=== PATIENT | female | born 1965 | race Caucasian/White ===

== ENCOUNTER 2019-05-13 10:37 | Emergency (ER) | payer MEDICAID, OTHER ==
[~2019-05-13] VITALS: Ht 160 cm; Wt 62.8 kg
[2019-05-13 11:59] VITALS: BP 137/86
== END 2019-05-13 13:01 | disposition home or self-care (01) ==
LOC: ED 12:57
DX: K52.9 Noninfective gastroenteritis and colitis, unspecified (principal)
CPT/HCPCS: 36415; 80053; 81001; 83605; 83690; 85025; 87086; 87147; 93005; 96361; 96374; 96375; 99284; J2270; J2405; J7030

== ENCOUNTER 2019-06-06 08:35 | Emergency (ER) | payer MEDICAID, OTHER ==
[~2019-06-06] VITALS: Ht 157.5 cm; Wt 61.8 kg
[2019-06-06 10:33] VITALS: BP 172/103
== END 2019-06-06 13:26 | disposition home or self-care (01) ==
LOC: ED 09:18
DX: N39.0 Urinary tract infection, site not specified (principal); I10 Essential (primary) hypertension; R19.7 Diarrhea, unspecified; R11.2 Nausea with vomiting, unspecified; Z87.891 Personal history of nicotine dependence; Z87.19 Personal history of other diseases of the digestive system
CPT/HCPCS: 36415; 74021; 74176; 80053; 81001; 83690; 85025; 87086; 99284; Q0162

== ENCOUNTER 2019-08-25 07:16 | Emergency (ER) | payer MEDICAID ==
[~2019-08-25] VITALS: Ht 157.5 cm; Wt 62.0 kg
[~2019-08-25 07:16] MED LIST: AMLO-150 PO; OMEP-110 PO
--- NOTE | 2019-08-25 07:41 | NUR ---
PATIENT PRESENTS TO ED TODAY FOR LOWER BACK PAIN X 2 MONTHS, PATIENT REPORTS SLIPPING ON A TOY ON THE STAIRS AND INJURED BACK 2 MONTHS AGO. PAIN NOT SUBSIDING. AWAITING MD ORDERS, CALL LIGHT WITHIN REACH.
[2019-08-25] MEDS ORDERED: AMLO10TA8 PO (07:45)
[2019-08-25] MEDS ORDERED: LOSA25TA25 PO (07:45)
[2019-08-25] MEDS ORDERED: KETOROLAC 30 MG/1 ML IVPush ONE (08:30)
[2019-08-25] MEDS ORDERED: CARISOPRODOL 350 MG TABLET PO ONE (08:30)
[2019-08-25] MEDS ORDERED: KETOROLAC 30 MG/1 ML ONE (08:36)
[2019-08-25] MEDS ORDERED: CARISOPRODOL 350 MG TABLET ONE (08:36)
--- NOTE | 2019-08-25 09:16 | NUR ---
PATIENT TO MRI VIA [facility].
--- NOTE | 2019-08-25 09:58 | NUR ---
REPORT TO ULICES NUÑEZ.
--- NOTE | 2019-08-25 10:02 | NUR ---
REPORT FROM LYDIA ELENA
--- NOTE | 2019-08-25 10:10 | NUR ---
DISPOSIWITH RE-ASSESSMENT PATIENT REPORTS PAIN IMPROVED FROM 09/30 TO 04/30. STILL UNCOMFORTABLE. PROVIDER MADE AWARE DENIES BOWEL/BLADDER DIFFICULTY. DENIES LEG NUMBNESS/WEAKNESS ROUGH DISPO PLAN TALKED ABOUT. PATIENT AGREEABLE TO BEING ADMITTED/FINDING A FRIEND TO TAKE CARE OF HER AT HOME ADTER TAXI DISPO
[2019-08-25 10:50] VITALS: BP 151/98
[2019-08-25] MEDS ORDERED: ATOR40TA78 PO (10:52)
[2019-08-25] MEDS ORDERED: GABA-826 PO (10:52)
[2019-08-25] MEDS ORDERED: HYDROcodone/APAP 5/325 TABLET ONE (10:59)
[2019-08-25] MEDS ORDERED: HYDROcodone/APAP 5/325 TABLET PO ONE (11:00)
--- NOTE | 2019-08-25 11:16 | NUR ---
PATIENT REFUSED NORCO SHE WOULD BE WALKING HOME AND DIDN'T WANT TO BE "TOO DRUGGED." ROAD AND PO CHALLENGE TESTS UNREMARKABLE REVIEWED PLAN: TAKE RX PRESCRIBED-AVOID ADDITIONAL SEDATIVED (INCLUDING ETOH)COME BACK IF PAIN UNBEARABLE/MOTOR/SENSATION CHANGES AND/OR BOWEL/BLADDER ABNORMALITIES OTHERWISE TO F/U WITH NEUROSURG JESUS
== END 2019-08-25 11:22 | disposition home or self-care (01) ==
LOC: ED 10:00
DX: G89.29 Other chronic pain (principal); M54.5 Low back pain; I10 Essential (primary) hypertension; Z86.73 Personal history of transient ischemic attack (TIA), and cerebral infarction without residual deficits; Z87.891 Personal history of nicotine dependence
CPT/HCPCS: 72148; 96374; 99284; J1885

== ENCOUNTER → 2019-09-24 | Outpatient (CLI) | payer MEDICAID ==
[~2019-09-24] MED LIST changes: +AMLO10TA8 PO; +ATOR40TA78 PO; +GABA-826 PO; +LOSA25TA25 PO
== END | disposition home or self-care (01) ==
LOC: RAD 14:17
PROVIDERS: ATTEND Registered Nurse Registered Nurse First Assistant
DX: M51.36 Other intervertebral disc degeneration, lumbar region (principal); M48.061 Spinal stenosis, lumbar region without neurogenic claudication; M41.86 Other forms of scoliosis, lumbar region
CPT/HCPCS: 72110

== ENCOUNTER 2020-05-04 09:45 | Emergency (ER) | payer MEDICAID ==
[~2020-05-04] VITALS: Ht 157.5 cm; Wt 66.1 kg
[2020-05-04 10:16] VITALS: BP 138/85
--- NOTE | 2020-05-04 10:41 | NUR ---
[employer]: PT WALKED BACK FROM LOBBY TO ROOM AT THIS TIME. STEADY UPON AMBULATION.
--- NOTE | 2020-05-04 10:46 | NUR ---
TASK RN, FIRST CONTACT WITH PT: Pt ambulates from lobby to room with steady gait and balance. Pt c/o left foot pain for one week. Pt reports pmh of plantar fasciitis in left foot with out symptoms for "years". Pt reports pain to left foot for one week with relief at rest. NADN. Pt denies trauma. Pt resting on gurney with call light within reach and NIBP cuff and SPO2% monitor on.
--- NOTE | 2020-05-04 10:56 | NUR ---
Provided report to ULICES Scanlon all questions answered, ULICES Scanlon to assume care of pt at this time.
== END 2020-05-04 12:34 ==
LOC: ED 10:24
DX: M72.2 Plantar fascial fibromatosis (principal); M79.672 Pain in left foot; I10 Essential (primary) hypertension; Z86.73 Personal history of transient ischemic attack (TIA), and cerebral infarction without residual deficits
CPT/HCPCS: 99283